=== PATIENT | female | born 1990 | race Caucasian/White ===

== ENCOUNTER 2017-02-14 06:36 | Day surgery (SDC) | payer BC ==
[~2017-02-14 06:36] MED LIST: Lactated Ringers 1,000 ML IV SCH; Lidocaine 1%/Sod Bicarbonate in NS 8.4% 1 ML Syringe PRN; Sodium Chloride 0.9% 10 ML Syringe FLUSH PRN
[2017-02-14] MEDS ORDERED: Bupivacaine 0.25% 30 ML SDV ONE (06:50)
[2017-02-14] MEDS ORDERED: Lidocaine 1% 4 ML ONE (06:51)
[2017-02-14] MEDS ORDERED: Midazolam 1 MG/ML 2 ML SDV ONE (06:52)
[2017-02-14] MEDS ORDERED: ceFAZolin 1 GM Vial ONE (06:52)
[2017-02-14] MEDS ORDERED: fentaNYL 100 MCG/2 ML SDV ONE (06:52)
[2017-02-14] MEDS ORDERED: Propofol 200 MG/20 ML SDV ONE ×2 (06:52→08:26)
[2017-02-14] MEDS ORDERED: Lidocaine 0.5% 50 ML SDV ONE (06:53)
[2017-02-14] MEDS ORDERED: Sodium Bicarbonate 8.4% 50 MEQ/50 ML SDV ONE (06:53)
--- NOTE | 2017-02-14 07:03 | PCM.PREANE ---
Preanesthetic Assessment - Anesthesia/Transfusion/Family Hx Anesthesia History: Prior Anesthesia Without Reaction Family History of Anesthesia Reaction: No Transfusion History: No Prior Transfusion(s) - Review of Systems General: No Symptoms Pulmonary: No Symptoms Cardiovascular: No Symptoms Gastrointestinal: No Symptoms Neurological: No Symptoms Other: Reports: None - Physical Assessment NPO Status Date: 02/13/17 NPO Status Time: 21:00 Pulse: 72 O2 Sat by Pulse Oximetry: 94 Respiratory Rate: 16 Blood Pressure: 118/78 Temperature: 97.9 F Height: 5 ft 3 in Weight: 102 kg ASA Class: 2 Mental Status: Alert & Oriented x3 Airway Class: Mallampati = 1 Dentition: Reports: Normal Dentition Thyro-Mental Finger Breadths: 3 Mouth Opening Finger Breadths: 3 ROM/Head Extension: Full Lungs: Clear to Auscultation, Normal Respiratory Effort Cardiovascular: Regular Rate, Regular Rhythm - Allergies Allergies/Adverse Reactions: Allergies Allergy/AdvReac Type Severity Reaction Status Date / Time brimonidine Allergy Headache Verified 02/13/17 13:53 - Blood Blood Available: No - Acknowledgements Anesthesia Type Planned: BAUTISTA Pt an Appropriate Candidate for the Planned Anesthesia: Yes Alternatives and Risks of Anesthesia Discussed w Pt/Guardian: Yes Pt/Guardian Understands and Agrees with Anesthesia Plan: Yes PreAnesthesia Questionnaire HEENT History: Reports: Otitis Media, Sinusitis, Other (See Below) (has contacts in) Cardiovascular History: Reports: None Respiratory History: Reports: None Gastrointestinal History: Reports: None Genitourinary History: Reports: None NURSE PLASTICS History: Reports: None Musculoskeletal History: Reports: Other (See Below) Other Musculoskeletal History: current 3rd and 4th left metacarpal fractures Neurological History: Reports: None Psychiatric History: Reports: None Endocrine/Metabolic History: Reports: None, Obesity/BMI 30+ Hematologic History: Reports: None Immunologic History: Reports: None Oncologic (Cancer) History: Reports: None Dermatologic History: Reports: None - Past Surgical History Head Surgeries/Procedures: Reports: None HEENT Surgical History: Reports: Oral Surgery Cardiovascular Surgical History: Reports: None Respiratory Surgical History: Reports: None GI Surgical History: Reports: None Female Surgical History: Reports: None Male Surgical History: Reports: None Endocrine Surgical History: Reports: None Neurological Surgical History: Reports: None Musculoskeletal Surgical History: Reports: None Oncologic Surgical History: Reports: None Dermatological Surgical History: Reports: None - SUBSTANCE USE Smoking Status *Q: Never Smoker Tobacco Use Within Last Twelve Months: No Second Hand Smoke Exposure: Yes Days Per Week of Alcohol Use: 1 (once or twice a month) Recreational Drug Use History: No - HOME MEDS Home Medications: Home Meds Hydrocodone/Acetaminophen [[place] 5-325] 2 tab PO Q6H 02/13/17 [History] Levonorgestrel-Ethin Estradiol [Lutera-28 Tablet] 1 tab PO DAILY 02/13/17 [ History] - CURRENT (IN HOUSE) MEDS Current Meds: Current Medications Lactated Ringer's (Ringers, Lactated) 1,000 mls @ 125 mls/hr IV ASDIRECTED TIFFANI Stop: 02/14/17 23:00 Lidocaine/Sodium Bicarbonate (Buffered Lidocaine 1% In Ns 8.4%) 0.25 ml .XX ONETIME PRN PRN Reason: Prior to IV Start Stop: 02/14/17 18:00 Sodium Chloride (Saline Flush) 10 ml FLUSH ASDIRECTED PRN PRN Reason: Keep Vein Open Stop: 02/14/17 18:00 Discontinued Medications Cefazolin Sodium (Ancef) Confirm Administered Dose 2 gm .ROUTE .STK-MED ONE Stop: 02/14/17 06:53 Fentanyl (Sublimaze) Confirm Administered Dose 100 mcg .ROUTE .STK-MED ONE Stop: 02/14/17 06:53 Lidocaine HCl (Xylocaine-Mpf 1%) Confirm Administered Dose 4 mls @ as directed .ROUTE .STK-MED ONE Stop: 02/14/17 06:52 Lidocaine HCl (Xylocaine-Mpf 0.5%) Confirm Administered Dose 50 ml .ROUTE .STK- MED ONE Stop: 02/14/17 06:54 Midazolam HCl (Versed 1 Mg/Ml) Confirm Administered Dose 2 mg .ROUTE .STK-MED ONE Stop: 02/14/17 06:53 Propofol (Diprivan 20 Ml) Confirm Administered Dose 200 mg .ROUTE .STK-MED ONE Stop: 02/14/17 06:53 Sodium Bicarbonate (Sodium Bicarbonate 8.4%) Confirm Administered Dose 50 meq .ROUTE .STK-MED ONE Stop: 02/14/17 06:54
[2017-02-14] MEDS ORDERED: Ondansetron 4 MG/2 ML SDV IVPUSH PRN (07:55)
[2017-02-14] MEDS ORDERED: HYDROmorphone 0.5 MG/0.5 ML Syringe IVPUSH PRN (09:02)
--- NOTE | 2017-02-14 09:03 | PCM48HPAN ---
Post Anesthesia Note - EVALUATION WITHIN 48HRS OF ANESTHETIC Vital Signs in Normal Range: Yes Patient Participated in Evaluation: Yes Respiratory Function Stable: Yes Airway Patent: Yes Cardiovascular Function Stable: Yes Hydration Status Stable: Yes Pain Control Satisfactory: Yes (being medicated) Nausea and Vomiting Control Satisfactory: Yes Mental Status Recovered: Yes
[2017-02-14] MEDS ORDERED: Acetaminophen/HYDROcodone 325-5 MG Tab PO PRN (09:12)
[2017-02-14] MEDS: fentaNYL 100 MCG/2 ML SDV IVPUSH PRN ×2 (09:14→09:39)
--- NOTE | 2017-02-14 09:44 | CR ---
Left hand: Multiple fluoroscopic spot views were obtained centered to the third metacarpal utilizing C-arm device in the operating room. Comparison: No previous study. Fracture is identified within the mid shaft of the third metacarpal. Fracture also identified within the mid shaft of the fourth metacarpal. Study shows placement of 2 longitudinal fixation pins. Fluoroscopy time given as 229.9 seconds. Impression: 1. Fractures within the third and fourth metacarpals showing orthopedic fixation. Diagnostic code #2
--- NOTE | 2017-02-20 18:22 | PCM.OPNOTE ---
- General Post-Op/Procedure Note Date of Surgery/Procedure: 02/14/17 Operative Procedure(s): limited open reduction with percutaneous pinning of left third and fourth metacarpal shaft fractures Pre Op Diagnosis: closed left third and fourth metacarpal shaft fractures Post-Op Diagnosis: Same Anesthesia Technique: Local, MAC, Regional Block Primary Surgeon: Chele Baca Anesthesia Provider: Peyton Chen Aeronautical Engineering Teacher: Luma Youngblood EBL in mLs: 10 Complications: None Condition: Good
--- NOTE | 2017-02-20 18:50 | OR ---
DATE OF OPERATION: 02/14/2017 SURGEON: Chele Baca MD OPERATION PERFORMED: Limited open reduction percutaneous pinning of left 3rd and 4th metacarpal shaft fractures. PREOPERATIVE DIAGNOSIS: Closed left 3rd and 4th metacarpal shaft fractures. POSTOPERATIVE DIAGNOSIS: Closed left 3rd and 4th metacarpal shaft fractures. ANESTHESIA: Local MAC with regional [place] block. ANESTHESIA PROVIDER: Peyton Chen CRNA. SKIN GRADER: Luma Youngblood PA-C. ESTIMATED BLOOD LOSS: Less than 10 mL. COMPLICATIONS: None. CONDITION: Stable. DESCRIPTION OF PROCEDURE: The patient was identified in the preop holding area. Proper site was marked and identified by the surgeon. The patient was taken back to the operating theater where after adequate anesthesia, the patient's left upper extremity was sterile prepped and draped in the usual sterile fashion. OR time-out was performed. The patient received 2 g IV Ancef. At this time, the left upper extremity had attempted closed reduction. At this time, it was noted that the left 3rd metacarpal was significantly angulated and shorted, so a small incision was made over the radial aspect of the left 3rd metacarpal just at the fracture site. At this time, a [place] elevator was used for reduction. At this time, two 0.045 K-wires were then placed in a cross-pin fashion in a retrograde fashion and it was found to have adequate reduction on both AP and lateral views of the 3rd metacarpal shaft. At this time, attention was turned to the 4th metacarpal shaft. This 1 was more easily reduced and less and more stable. At this time, two 0.045 K-wires were placed in a cross-pin fashion through the metacarpal shaft showing adequate fixation and reduction on both AP and lateral views. At this time, the pins were bent and cut. The patient was placed in sterile soft dressing and was placed in an Ortho-Glass splint. The patient tolerated the procedure well and sent to PACU in stable condition. MMODAL /[id number]
== END 2017-02-14 10:35 | disposition home or self-care (01) ==
LOC: JD.SDS 06:36
PROVIDERS: ATTEND Orthopaedic Surgery
DX: S62.323A Displaced fracture of shaft of third metacarpal bone, left hand, initial encounter for closed fracture (principal); S62.325A Displaced fracture of shaft of fourth metacarpal bone, left hand, initial encounter for closed fracture; F17.210 Nicotine dependence, cigarettes, uncomplicated; E66.9 Obesity, unspecified; Z88.8 Allergy status to other drugs, medicaments and biological substances; Z79.899 Other long term (current) drug therapy; Z98.818 Other dental procedure status; Z68.41 Body mass index [BMI] 40.0-44.9, adult
CPT/HCPCS: 26615; 36415; 76000; 84703; A9270; C1713; C1769; J0690; J1170; J2250; J2405; J3010; J3490; J7120; 01820; J2704